=== PATIENT | male | born 1995 | race Caucasian/White ===

== ENCOUNTER 2018-12-02 11:29 | Outpatient (CLI) | payer BC ==
--- NOTE | 2018-12-02 13:40 | RAD ---
CHEST 2 VIEWS: HISTORY: Psoriasis. COMPARISON: 10/20/2007. FINDINGS: Heart size is normal. The lungs are clear. No pneumonia, edema, or pleural effusion. IMPRESSION: No significant acute intrathoracic disease. POS: [facility]
== END 2018-12-02 11:30 | disposition home or self-care (01) ==
LOC: BICRAD 11:29
PROVIDERS: ATTEND Internal Medicine Rheumatology
DX: L40.9 Psoriasis, unspecified (principal)
CPT/HCPCS: 71046

== ENCOUNTER 2019-01-16 21:06 | Emergency (ER) | payer BC ==
[2019-01-16] MEDS ORDERED: Proparacaine 0.5% Opth 15 ML BOT ONE (21:26)
[2019-01-16] MEDS ORDERED: Fluorescein Opthalmic Strip ONE (21:26)
== END 2019-01-16 22:31 | disposition home or self-care (01) ==
LOC: ERS 21:06
DX: S05.01XA Injury of conjunctiva and corneal abrasion without foreign body, right eye, initial encounter (principal); F90.9 Attention-deficit hyperactivity disorder, unspecified type; X58.XXXA Exposure to other specified factors, initial encounter
CPT/HCPCS: 99283

== ENCOUNTER 2019-09-29 10:18 | Outpatient (CLI) | payer OTHER ==
--- NOTE | 2019-09-29 11:49 | RAD ---
2 VIEWS CHEST: Date: 09/29/2019 COMPARISON: 12/02/18. HISTORY: Cough. FINDINGS: Two views of the chest show normal sized cardiomediastinal silhouette. There is no evidence of consol idation, mass, or pleural effusion. The bones are unremarkable. IMPRESSION: No evidence of acute cardiopulmonary disease. POS: [facility]
== END 2019-09-29 10:19 | disposition home or self-care (01) ==
LOC: BICRAD 10:18
PROVIDERS: ATTEND Family Medicine
DX: R05 Cough (principal)
CPT/HCPCS: 36415; 71046; 85025; 86308